=== PATIENT | female | born 1980 | race American Indian/Alaskan Native ===

== ENCOUNTER 2019-01-20 10:02 | Emergency (ER) | payer SELFPAY ==
[2019-01-20 10:10] VITALS: BP 174/86
== END 2019-01-20 13:36 | disposition left against medical advice (07) ==
LOC: ED 10:02
DX: R07.89 Other chest pain (principal); Z53.21 Procedure and treatment not carried out due to patient leaving prior to being seen by health care provider
CPT/HCPCS: 93005; 93010